=== PATIENT | male | born 1990 | race Caucasian/White ===

== ENCOUNTER 2022-12-10 14:53 | Emergency (ER) | payer OTHER ==
[2022-12-10 14:57] VITALS: BP 120/80; PULSE 98; RESP 18; TEMP 98.5; BMI 25.8
== END 2022-12-10 15:22 | disposition home or self-care (01) ==
LOC: FER 14:53
DX: S60.811A Abrasion of right wrist, initial encounter (principal); X58.XXXA Exposure to other specified factors, initial encounter; Y99.0 Civilian activity done for income or pay
CPT/HCPCS: 99283-25

== ENCOUNTER 2024-01-23 12:11 | Emergency (ER) | payer OTHER ==
[2024-01-23 12:40] VITALS: BP 121/88; PULSE 64; RESP 18; TEMP 98.6; BMI 25.8
== END 2024-01-23 13:20 | disposition home or self-care (01) ==
LOC: FER 12:11
DX: S53.402A Unspecified sprain of left elbow, initial encounter (principal); Y35.811A Legal intervention involving manhandling, law enforcement official injured, initial encounter
CPT/HCPCS: 73070-TC-LT-FY; 99283-25